=== PATIENT | female | born 1960 | race Caucasian/White ===

== ENCOUNTER 2021-07-27 22:32 | Emergency (ER) | payer OTHER ==
[~2021-07-27 22:32] MED LIST: AUGMENTIN 875 M1 TAB PO; DARVOCET N 1001 TAB PO
[2021-07-27] MEDS ORDERED: ARMOUR THYROID120 M1 PO (22:53)
[2021-07-27] MEDS ORDERED: XANAX0.5 MG PO (22:54)
[2021-07-28] MEDS ORDERED: ULTRAM50 MG PO (04:26)
== END 2021-07-28 04:48 | disposition home or self-care (01) ==
LOC: ED 22:32
DX: S52.502A Unspecified fracture of the lower end of left radius, initial encounter for closed fracture (principal); S52.602A Unspecified fracture of lower end of left ulna, initial encounter for closed fracture; Z88.6 Allergy status to analgesic agent; Z88.8 Allergy status to other drugs, medicaments and biological substances; W01.0XXA Fall on same level from slipping, tripping and stumbling without subsequent striking against object, initial encounter; Z91.81 History of falling; Y93.89 Activity, other specified; Y92.89 Other specified places as the place of occurrence of the external cause; Y99.8 Other external cause status